=== PATIENT | female | born 1930 | race Hispanic/Latino ===

== ENCOUNTER 2017-06-16 20:06 | Emergency (ER) | payer SELFPAY ==
[~2017-06-16] VITALS: Ht 152.4 cm; Wt 65.8 kg
--- NOTE | 2017-06-16 21:01 | Diagnostic Imaging Report ---
EXAMINATION: Head CT without contrast. HISTORY:Trauma, fall. COMPARISON:None. TECHNIQUE: Multidetector axial images were obtained from the foramen magnum to the vertex without contrast. The images were reconstructed using brain and bone algorithms. Thin section brain images were reformatted into coronal and sagittal planes. Intravenous contrast: None IMAGE QUALITY: Acceptable. FINDINGS: Skull/scalp: Incidental 6 mm exophytic osteoma/exostosis in the left paramedian aspect of the frontal calvarium. Parenchyma: Nonspecific few, scattered supratentorial white matter hypodensity are likely related to small vessel ischemic changes. No acute hemorrhage, mass or acute major vascular territorial infarct. Arteries: Mild atherosclerotic calcification in bilateral carotid siphon. Dural sinuses: No abnormal density suggestive of thrombosis. Ventricles: Mild compensated dilatation due to volume loss. No hydrocephalus. Extra-axial spaces: No abnormal density. Brain volume: Generalized age-related cerebral volume loss. Craniocervical junction: No mass, Chiari malformation, or basilar invagination. Sella: Partial empty sella. Paranasal/mastoid sinuses: Mild mucosal thickening and bubbly secretions in hypoplastic right maxillary sinus. Mild mucosal thickening with thickened and sclerotic sinus wall and left sphenoid sinus represents chronic inflammation. IMPRESSION: 1. No acute intracranial abnormality. 2. Mild supratentorial white matter microvascular ischemic changes and generalized age-related cerebral volume loss. Signed by: Dr. Meenu Gomez M.D. on 06/16/2017 8:57 PM
--- NOTE | 2017-06-16 21:13 | Diagnostic Imaging Report ---
History: Trauma, status post fall. Comparison studies: None Technique: Axial images were obtained through the cervical region.. Coronal and sagittal images reconstructed from the axial data.. Intravenous contrast: None Findings: Fractures: None. Soft tissue injuries: None. Atlantoaxial articulation: Intact. Alignment: Reversal of normal cervical lordosis centered at C5-C6. No scoliosis. 2.4 mm grade 1 anterolisthesis at C4-C5. Asymmetric increase in interspinous distance at level C5-C6 bases concern for possible ligament injury Cervicomedullary junction: No abnormalities. The foramen magnum is patent. Soft tissues: No abnormalities. Vertebrae: Ill-defined linear lucency in the anterior aspect of C3 spinous process with well corticated margin (image 16, series 600) not well visualized in other reformatted sequence, possibly related to prior trauma. No infection or neoplasm. Degenerative changes: C2-C3: Posterior disc osteophyte complex without significant canal stenosis. C3-C4: Posterior disc osteophyte complex results in mild canal stenosis. Mild left foraminal stenosis due to facet and uncovertebral arthrosis. C4-C5: Moderate left foraminal stenosis due to facet and uncovertebral arthrosis. C5-C6: Posterior disc osteophyte complex without significant canal stenosis. Mild bilateral foraminal stenosis due to facet and uncovertebral arthrosis. C6-C7: Posterior disc osteophyte complex results in mild canal stenosis. Mild right and moderate left foraminal stenosis due to facet and uncovertebral arthrosis. Incidental findin mm pleural-based airspace opacity in left lung apex may represent scar. IMPRESSION: 1. No acute cervical spine fracture. Reversal of normal cervical lordosis may be positional or due to muscle spasm. 2. Grade 1 anterolisthesis at C4-C5 with asymmetric increase in interspinous distance at level C5-C6 raises concern for possible ligament injury. If there is clinical correlation with point tenderness consider follow-up with MRI of the cervical spine per trauma protocol. 3. Ligament, spinal cord and or vascular abnormalities cannot be excluded on the basis of this examination. 4. Cervical spondylosis as detailed above. Signed by: Dr. Meenu Gomez M.D. on 06/16/2017 9:09 PM
--- NOTE | 2017-06-16 21:23 | Diagnostic Imaging Report ---
CHEST SINGLE (NOT PORTABLE), 06/16/2017 8:24 PM Technique: CHEST SINGLE (NOT PORTABLE) Comparison: None available. Clinical history: Fall, trauma Findings: Normal cardiomediastinal silhouette for technique. No consolidation, pleural effusion or pneumothorax. Severe shoulder degenerative changes with evidence of chronic rotator cuff pathology. Impression: 1. Lines/Tubes: None 2. No acute abnormality. Signed by: Dr Lina Cornejo MD on 06/16/2017 9:19 PM
--- NOTE | 2017-06-16 21:28 | Diagnostic Imaging Report ---
HUMERUS LEFT 2+VIEWS, SHOULDER LEFT COMPLETE, ANKLE 3+ VIEWS LEFT Comparison: None Clinical history: Fall, trauma Findings: Decreased bone mineralization. Left shoulder and humerus: Severe glenohumeral and acromioclavicular degenerative change with evidence of chronic rotator cuff pathology. No acute fracture or dislocation. Left ankle: Midfoot degenerative changes. Calcaneal plantar spur and Achilles enthesophyte. No acute fracture or dislocation. Impression: No acute bony abnormality Signed by: Dr Lina Cornejo MD on 06/16/2017 9:24 PM
== END 2017-06-16 23:00 | disposition home or self-care (01) ==
LOC: ER 20:06
DX: S51.802A Unspecified open wound of left forearm, initial encounter (principal); S43.52XA Sprain of left acromioclavicular joint, initial encounter; S93.432A Sprain of tibiofibular ligament of left ankle, initial encounter; M25.512 Pain in left shoulder; W01.0XXA Fall on same level from slipping, tripping and stumbling without subsequent striking against object, initial encounter; Y93.01 Activity, walking, marching and hiking; Y92.008 Other place in unspecified non-institutional (private) residence as the place of occurrence of the external cause; I10 Essential (primary) hypertension
CPT/HCPCS: 70450; 71045; 72125